=== PATIENT | male | born 1980 | race Caucasian/White ===

== ENCOUNTER 2017-02-23 11:44 | Emergency (ER) | payer SELFPAY ==
[~2017-02-23] VITALS: Ht 175.3 cm; Wt 95.0 kg
[2017-02-23 11:46] VITALS: BP 152/82; PULSE 84; RESP 20; TEMP 97.6; O2SAT 99
[2017-02-23 12:57] VITALS: O2SAT 97
[2017-02-23] MEDS ORDERED: SODIUM CHLORIDE 0.9% FLUSH 10 ML FLUSH IVF PRN (13:00)
[2017-02-23] MEDS ORDERED: SODIUM CHLOR 0.9% 1000 ML INJ 1,000 ML IV ONE (13:00)
[2017-02-23 13:10] LABS: AUTOMATED NEUTROPHIL # 6.8 TH/MM3 (1.8-7.7); BASOPHIL % 0.4 % (0.0-2.0); EOSINOPHIL % 0.1 % (0.0-4.0); HEMATOCRIT 41.1 % (39.0-51.0); HEMO FLAGS DIFF FINAL; LYMPH % 8.4 % (9.0-44.0); LYMPHOCYTE # 0.7 TH/MM3 (1.0-4.8); MEAN CELL VOLUME 87.5 FL (80.0-100.0); MEAN CORPUSCULAR HEMOGLOBIN 30.1 PG (27.0-34.0); MEAN CORPUSCULAR HGB CONC 34.4 % (32.0-36.0); MONO % 4.5 % (0.0-8.0); NEUT % 86.6 % (16.0-70.0); PLATELET COUNT 214 TH/MM3 (150-450); RED BLOOD COUNT 4.69 MIL/MM3 (4.50-5.90); RED CELL DISTRIBUTION WIDTH 12.8 % (11.6-17.2); WHITE BLOOD COUNT 7.9 TH/MM3 (4.0-11.0)
[2017-02-23 13:20] LABS: PROTHROMBIN TIME - PATIENT 11.6 SEC (9.8-11.6)
--- NOTE | 2017-02-23 13:24 | RADRPT ---
EXAM DATE/TIME: 02/23/2017 13:08 [facility] COMPARISON: No previous studies available for comparison. INDICATIONS : Trauma; fall. RADIATION DOSE: 56.35 CTDIvol (mGy) MEDICAL HISTORY : None SURGICAL HISTORY : None. ENCOUNTER: Initial ACUITY: 1 day PAIN SCALE: 3/10 LOCATION: cranial TECHNIQUE: Multiple contiguous axial images were obtained of the head. Using automated exposure control and adj ustment of the mA and/or kV according to patient size, radiation dose was kept as low as reasonably a chievable to obtain optimal diagnostic quality images. DICOM format image data is available electro nically for review and comparison. FINDINGS: CEREBRUM: The ventricles are normal for age. No evidence of midline shift, mass lesion, hemorrhage or acute in farction. No extra-axial fluid collections are seen. POSTERIOR FOSSA: The cerebellum and brainstem are intact. The 4th ventricle is midline. The cerebellopontine angle i s unremarkable. EXTRACRANIAL: The visualized portion of the orbits is intact. SKULL: The calvaria is intact. No evidence of skull fracture. CONCLUSION: Normal examination for a patient of this age. Sadiq Thornton MD on February 23, 2017 at 13:20 Board Certified Radiologist. This report was verified electronically.
--- NOTE | 2017-02-23 13:28 | PD ---
HPI Chief Complaint: Syncope/Near-Syncope Time Seen by Provider: 12:36 Travel History International Travel<30 days: No Contact w/Intl Traveler<30days: No Traveled to known affect area: No History of Present Illness HPI 36-year-old male presents to the emergency department complaining that he passed out this morning. He assisted and feeling completely well and healthy. Around 7 AM this morning with his dog on was walking to the bathroom to urinate when he woke up on the ground. States he feels like he was out for about an hour or so. He had no premonitory lightheadedness dizziness or other symptoms. Denies any chest pain or trouble breathing. He states since then he felt slightly lightheaded, nauseous. He's also had a slight headache. He also feels weak all over. He denies ever having had previous similar symptoms. His a history of back problems and takes naproxen and Robaxin bit had not taken them this morning. No change. He does smoke an occasional cigar but no other tobacco use. No family history of early heart disease. No family history of sudden cardiac . History Past Medical History Narrative Medical Back problems Social History Alcohol Use: No Tobacco Use: Yes Allergies-Medications (Allergen,Severity, Reaction): Coded Allergies: No Known Allergies (Unverified , 02/23/17) Review of Systems Except as stated in HPI: all other systems reviewed are Neg Physical Exam Narrative GENERAL: 36-year-old man, is a little bit clammy, not toxic however. SKIN: Focused skin assessment cool, little bit clammy. HEAD: Atraumatic. Normocephalic. EYES: Pupils equal and round. No scleral icterus. No injection or drainage. ENT: No nasal bleeding or discharge. Mucous membranes pink and moist. NECK: Trachea midline. No JVD. CARDIOVASCULAR: Regular rate and rhythm. No murmur appreciated. RESPIRATORY: No accessory muscle use. Clear to auscultation. Breath sounds equal bilaterally. GASTROINTESTINAL: Abdomen soft, non-tender, nondistended. Hepatic and splenic margins not palpable. MUSCULOSKELETAL: No obvious deformities. No edema. NEUROLOGICAL: Awake and alert. No obvious cranial nerve deficits. Motor grossly within normal limits. Normal speech. PSYCHIATRIC: Appropriate mood and affect; insight and judgment normal. Data Data Last Documented VS Vital Signs Date Time Temp Pulse Resp B/P Pulse Ox O2 Delivery O2 Flow Rate FiO2 02/23/17 12:57 97 Nasal Cannula 2 02/23/17 12:57 18 02/23/17 11:46 97.6 84 152/82 Orders Electrocardiogram (02/23/17 12:48) Complete Blood Count With Diff (02/23/17 12:48) Comprehensive Metabolic Panel (02/23/17 12:48) Magnesium (Mg) (02/23/17 12:48) Prothrombin Time / Inr (Pt) (02/23/17 12:48) Act Partial Throm Time (Ptt) (02/23/17 12:48) Troponin I (02/23/17 12:48) Ecg Monitoring (02/23/17 12:48) Iv Access Insert/Monitor (02/23/17 12:48) Oximetry (02/23/17 12:48) Oxygen Administration (02/23/17 12:48) Sodium Chloride 0.9% Flush (Ns Flush) (02/23/17 13:00) Chest, Pa & Lat (02/23/17 12:48) Sodium Chlor 0.9% 1000 Ml Inj (Ns 1000 M (02/23/17 13:00) Ct Brain W/O Iv Contrast(Rout) (02/23/17 ) Labs Laboratory Tests Test 02/23/17 13:01 White Blood Count 7.9 TH/MM3 Red Blood Count 4.69 MIL/MM3 Hemoglobin 14.1 GM/DL Hematocrit 41.1 % Mean Corpuscular Volume 87.5 FL Mean Corpuscular Hemoglobin 30.1 PG Mean Corpuscular Hemoglobin 34.4 % Concent Red Cell Distribution Width 12.8 % Platelet Count 214 TH/MM3 Mean Platelet Volume 9.1 FL Neutrophils (%) (Auto) 86.6 % Lymphocytes (%) (Auto) 8.4 % Monocytes (%) (Auto) 4.5 % Eosinophils (%) (Auto) 0.1 % Basophils (%) (Auto) 0.4 % Neutrophils # (Auto) 6.8 TH/MM3 Lymphocytes # (Auto) 0.7 TH/MM3 Monocytes # (Auto) 0.4 TH/MM3 Eosinophils # (Auto) 0.0 TH/MM3 Basophils # (Auto) 0.0 TH/MM3 CBC Comment DIFF FINAL Differential Comment Prothrombin Time 11.6 SEC Prothromb Time International 1.0 RATIO Ratio Activated Partial 25.0 SEC Thromboplast Time Sodium Level 133 MEQ/L Potassium Level 4.6 MEQ/L Chloride Level 103 MEQ/L Carbon Dioxide Level 24.5 MEQ/L Anion Gap 6 MEQ/L Blood Urea Nitrogen 23 MG/DL Creatinine 1.00 MG/DL Estimat Glomerular Filtration 84 ML/MIN Rate Random Glucose 110 MG/DL Calcium Level 8.6 MG/DL Magnesium Level 1.8 MG/DL Total Bilirubin 0.4 MG/DL Aspartate Amino Transf 20 U/L (AST/SGOT) Alanine Aminotransferase 21 U/L (ALT/SGPT) Alkaline Phosphatase 39 U/L Troponin I LESS THAN 0.02 NG/ML Total Protein 7.1 GM/DL Albumin 3.7 GM/DL [facility] Medical Decision Making Medical Screen Exam Complete: Yes Emergency Medical Condition: Yes Interpretation(s) My review of EKG: Normal sinus rhythm at a rate of 64, normal axis, normal intervals, no acute ischemia. LABS: CBC is unremarkable. CMP remarkable for mildly elevated BUN. Troponin negative. Coags are unremarkable. Chest x-ray: Subsegmental ectasis of the lung bases. No effusion or pneumothorax. Head CT: Normal examination. Differential Diagnosis Syncope, vasovagal, arrhythmia, bleed, anemia, electrolyte abnormality, seizure , other Narrative Course Medical decision making INITIAL: Is a 36 room air presents to the emergency department with apparent syncopal episode. No clear premonitory symptoms. History is a little bit concerning. We'll check labs EKG, complains some headache we'll check CT head. Reassess. FINAL: 36 year-old man, feeling much improved. Take blood episode of unclear etiology. No evidence of seizure. BUN to little bit high the could suggest dehydration. There is no anemia. Performed a guaiac stool which was negative. No evidence of GI bleeding. No other red flag symptoms. This point I think the patient is safe for outpatient follow-up. Recommend any get repeat evaluation with his primary physician. [facility] Point of Care Internal Pos. & Neg. Controls: Passed Fecal Specimen Occult Blood: Negative Diagnosis Primary Impression: Syncope and collapse Additional Instructions: Follow-up with your primary doctor in the next 2-4 days. Return to the emergency department for any recurrent episodes of fainting, any chest pain or trouble breathing, any lightheadedness or dizziness, or any other new or worsening symptoms. Med/Other Pt SpecificInfo: No Change to Meds Disposition: 01 DISCHARGE HOME Condition: Stable Akhil Richardson MD Feb 23, 2017 13:28
--- NOTE | 2017-02-23 13:29 | RADRPT ---
EXAM DATE/TIME: 02/23/2017 13:05 [facility] COMPARISON: No previous studies available for comparison. INDICATIONS : Chest Pain, syncopal episode MEDICAL HISTORY : None. SURGICAL HISTORY : None. ENCOUNTER: Initial ACUITY: 1 day PAIN SCORE: 4/10 LOCATION: Bilateral chest FINDINGS: PA and lateral views of the chest demonstrate the lungs to be symmetrically aerated without evidence of mass, infiltrate or effusion. The subsegmental linear opacity at the bases most characteristic of atelectasis. The cardiomediastinal contours are unremarkable. Osseous structures are intact. CONCLUSION: 1. Subsegmental atelectasis at the lung bases. No effusion or pneumothorax. Sadiq Thornton MD on February 23, 2017 at 13:26 Board Certified Radiologist. This report was verified electronically.
[2017-02-23 13:30] LABS: ALKALINE PHOSPHATASE 39 U/L (45-117); TOTAL BILIRUBIN ADULT 0.4 MG/DL (0.2-1.0)
[2017-02-23 13:40] LABS: ALT (GPT) 21 U/L (12-78); ANION GAP 6 MEQ/L (5-15); AST (GOT) 20 U/L (15-37); BICARBONATE 24.5 MEQ/L (21.0-32.0); BLOOD UREA NITROGEN 23 MG/DL (7-18); CHLORIDE 103 MEQ/L (98-107); GLOMERULAR FILTRATION RATE 84 ML/MIN (>89); MAGNESIUM 1.8 MG/DL (1.5-2.5); SODIUM (NA) 133 MEQ/L (136-145)
[2017-02-23 13:41] LABS: POTASSIUM 4.6 MEQ/L (3.5-5.1)
--- NOTE | 2017-02-24 13:22 | EKG ---
Date Performed: 02/23/2017 Time Performed: 12:48:23 PTAGE: 36 years EKG: Sinus rhythm NORMAL ECG NO PREVIOUS TRACING DOCTOR: Lory Nieves Interpretating Date/Time 02/24/2017 13:18:37
== END 2017-02-23 14:35 | disposition home or self-care (01) ==
LOC: NEPD 11:44
DX: R55 Syncope and collapse (principal)
CPT/HCPCS: 70450; 71020; 80053; 83735; 84484; 85025; 85610; 85730; 93005; 96360; 99285; J7030